=== PATIENT | female | born 1955 | race Caucasian/White ===

== ENCOUNTER 2016-04-08 14:21 | Outpatient (RCR) | payer MEDICARE ==
[~2016-04-08 14:21] MED LIST: ALBU8.5H2 IH; ANAS1TAB44 PO; ASPI-875 PO; CHOL200018 PO; CLN150C PO; CPR500T PO; DCS100C PO; DICL50TA4 PO; DICL75TA2 PO; GABA-488 PO; HYDR-34 PO; HYDR1TAB66 PO; IBP600T1 PO; IBP800T PO; LOSA100T7 PO; LOSA25TA5 PO; MELO-198 PO; METF-380 PO; METF500T8 PO; METR500T PO; MULT-974 PO; Nystatin TP; OXYC-12 PO; ROSU10TA12 PO; ROSU40TA PO; SRTR100T PO; TELM1TAB3 PO; TELM40T PO; VITA400T9 PO
--- OUTSIDE RECORDS SUMMARY | 2016-04-08 14:25 | XMS REPORT | Continuity of Care Document ---
Author Author [facility] Organization [facility] Address Unknown Phone Unavailable Care Team Providers Care Surface Ship Usw Supervisor Name Role Phone NO, LOCAL PHYSICIAN PCP Unavailable Insurance Providers Payer Name Policy Number Subscriber Name Relationship Wps Medicare [id number] PinkyoumouGeorget Nasreen 18 Self / Same As Patient Medicaid [place] [id number] Heidi Soria 18 Self / Same As Patient Advance Directives Directive Response Recorded Date/Time Advance Directives No 11/15/14 10:47pm Health Care Power of Denture Contour Wire Specialist No 11/15/14 10:47pm Organ Donor N would like to be 11/15/14 10:47pm Resuscitation Status DNR-Pt Request 11/15/14 10:47pm Chief Complaint and Reason for Visit Chief Complaint L BREAST CELLULITIS, HX L BREAST CA,DM Reason for Visit Diabetes mellitus History of left breast cancer Diabetes mellitus Problems Medical Problems Problem Onset Date Status Wound dehiscence Unknown Active Dehiscence of surgical wound Unknown Active Diabetes mellitus Unknown Active History of left breast cancer Unknown Active Diabetes mellitus Unknown Active Medications Medication Dose Route Sig Days/Qty Instructions Order Date Discontinued Date Status Sertraline HCl 100 Mg PO TWICE A DAY 05/29/11 Active Telmisartan/Hydrochlorothiazide 1 Each PO DAILY 05/29/11 05/26/12 Discontinued Metformin HCl (Glucophage) 1 Each PO TWICE A DAY WITH MEALS 05/29/11 11/16/14 Discontinued Meloxicam (Mobic) 1 Each PO DAILY 05/29/11 05/26/12 Discontinued Ciprofloxacin 500 Mg PO TWICE A DAY 10/07/11 05/26/12 Discontinued Metronidazole (Flagyl) 500 Mg PO TWICE A DAY 10/07/11 05/26/12 Discontinued Hydrocodone Bit/Acetaminophen 5 - 500 Mg PO NEEDED 10/07/1105/26 Discontinued Ibuprofen 800 Mg PO TWICE A DAY 10/07/11 05/20/13 Discontinued Oxycodone Hcl/Acetaminophen 1 Each PO 10/09/11 05/26/12 Discontinued Telmisartan 80 Mg PO DAILY 05/26/12 05/19/13 Discontinued Oxycodone Hcl/Acetaminophen 1-2 Each PO NEEDED 06/02/12 05/20/13 Discontinued Anastrozole 1 Mg PO DAILY 05/04/13 Active Losartan Potassium 25 Mg PO DAILY 30 Qty 05/19/13 11/16/14 Discontinued Docusate Sodium 100 Mg PO TWICE A DAY PRN CONSTIPATION 30 Qty 05/20/13 05/27/13 Discontinued Acetaminophen/Hydrocodone Bitart 1 Ea PO EVERY 6 HOURS PRN PAIN 50 Qty 05/20/13 05/27/13 Discontinued Ibuprofen 600 Mg PO EVERY 6 HOURS PRN PAIN 60 Qty 05/20/13 05/27/13 Discontinued Diclofenac Potassium 50 Mg PO 11/15/14 11/16/14 Discontinued Gabapentin 300 Mg PO THREE TIMES A DAY 11/15/14 Active Rosuvastatin Calcium 40 Mg PO 11/15/14 11/16/14 Discontinued Metformin Hcl 1,000 Mg PO BEDTIME TAKES 2 (500MG) TABLETS 11/16/14 Active Losartan Potassium 100 Mg PO BEDTIME 11/16/14 Active Diclofenac Sodium 75 Mg PO TWICE A DAY PRN PAIN 11/16/14 Active Rosuvastatin Calcium 10 Mg PO BEDTIME 11/16/14 Active Albuterol 1 Puff IH EVERY 4-6 HOURS PRN SHORTNESS OF BREATH 11/16/14 Active Vitamin E Mixed 400 Unit PO TWICE A DAY 11/16/14 Active Multivitamin 1 Tab PO DAILY 11/16/14 Active Cholecalciferol (Vitamin D3) 2,000 Unit PO DAILY 11/16/14 Active Aspirin 81 Mg PO BEDTIME 30 Days 11/16/14 Active Clindamycin Hcl 300 Mg PO GIVE EVERY 6 HR ON SCHEDULE 28 Qty 11/17/14 Active [Nystatin] 0 Gm TP THREE TIMES A DAY 1 Qty 11/17/14 Active Social History Social History Problem Response Recorded Date/Time Alcohol Use Denies Use 11/15/2014 10:53pm Recreational Drug Use No 11/15/2014 10:53pm Recent Foreign Travel No 11/15/2014 10:53pm Recent Infectious Disease Exposure No 11/15/2014 10:53pm Hospitalization with Isolation Denies 11/17/2014 10:36am Sexually Transmitted Disease No 11/15/2014 10:53pm HIV/AIDS No 11/15/2014 10:53pm Smoking Status Never a Smoker 11/15/2014 10:49pm Query Response Start Date Stop Date Smoking Status Never a Smoker Hospital Discharge Instructions Patient Instructions Physician Instructions New, Converted or Re-Newed RX: Transmitted to Pharmacy (Clindamycin; RN to call in Nystatin) Goal/Follow Up Appt: Follow up with Barbara Hermosillo at [facility] 1 week. Discharge Diet: ADA Diet Activity as Tolerated: Yes Care Plan Goal:: Follow up with Barbara Hermosillo at [facility] 1 week. Plan of Care Discharge Date 11/17/14 9:40am Disposition 30 STILL A PATIENT Instructions/Education Provided Cellulitis (DC) Prescriptions See Medications Section Functional Status Query Response Date Recorded Comprehension Ability Understands Concepts November 17, 2014 8:00am Allergies, Adverse Reactions, Alerts Allergen Type Severity Reaction Status Last Updated No Known Drug Allergies Active 05/29/11 Immunizations Name Given Type Date of Pneumonia Vaccine 05/02/12 Historical Date of Influenza Vaccine 03/02/13 Historical Tetanus Booster (TDap) Less than 5yrs Historical Vital Signs Acute Vital Signs Vital Response Date/Time Temperature (Fahrenheit) 96.8 degrees F (97.6 - 99.5) Temperature (Calculated Celsius) 36.11457 degrees C (36.4 - 37.5) Temperature Source Tympanic Pulse Rate (adult) 75 bpm (60 - 90) Respiratory Rate 18 bpm (12 - 24) O2 Sat by Pulse Oximetry 95 % (88 - 100) Blood Pressure 127/80 mm Hg Pain Pain Intensity 0 Height (Feet) 5 feet Height (Inches) 2.00 inches Height (Calculated Centimeters) 157.611303 cm Weight (Pounds) 336 pounds Weight (Calculated Grams) 658286.038 gm Weight (Calculated Kilograms) 152.360227 kilograms Calculated BMI 61.45 Results Laboratory Results Test Name Result Units Flags Reference Collection Date/Time Result Date/ Time Comments White Blood Count 9.1 10^3/uL 4.3-11.0 11/17/2014 5:11/17/2014 6: 20am Red Blood Count 4.51 10^6/uL 4.35-5.85 11/17/2014 5:11/17/2014 6: 20am Hemoglobin 11.7 G/DL 11.5-16.0 11/17/2014 5:11/17/2014 6:20am Hematocrit 37 % 35-52 11/17/2014 5:11/17/2014 6:20am Mean Corpuscular Volume 82 FL 80-99 11/17/2014 5:11/17/2014 6: 20am Mean Corpuscular Hemoglobin 26 PG 25-34 11/17/2014 5:11/17/2014 6: 20am Mean Corpuscular Hemoglobin Concent 32 G/DL 32-36 11/17/2014 5: 6:20am Red Cell Distribution Width 16.8 % H 10.0-14.5 11/17/2014 5:2014 6:20am Platelet Count 218 10^3/uL 130-400 11/17/2014 5:11/17/2014 6:20am Mean Platelet Volume 10.4 FL 7.4-10.4 11/17/2014 5:11/17/2014 6: 20am Neutrophils (%) (Auto) 68 % 42-75 11/17/2014 5:11/17/2014 6:20am Lymphocytes (%) (Auto) 17 % 12-44 11/17/2014 5:11/17/2014 6:20am Monocytes (%) (Auto) 14 % H 0-12 11/17/2014 5:11/17/2014 6:20am Eosinophils (%) (Auto) 2 % 0-10 11/17/2014 5:11/17/2014 6:20am Basophils (%) (Auto) 0 % 0-10 11/17/2014 5:11/17/2014 6:20am Neutrophils # (Auto) 6.1 X 10^3 1.8-7.8 11/17/2014 5:11/17/2014 6: 20am Lymphocytes # (Auto) 1.5 X 10^3 1.0-4.0 11/17/2014 5:11/17/2014 6: 20am Monocytes # (Auto) 1.3 X 10^3 H 0.0-1.0 11/17/2014 5:11/17/2014 6: 20am Eosinophils # (Auto) 0.1 10^3/uL 0.0-0.3 11/17/2014 5:11/17/2014 6 :20am Basophils # (Auto) 0.0 10^3/uL 0.0-0.1 11/17/2014 5:11/17/2014 6: 20am Neutrophils % (Manual) 72 % 11/17/2014 5:11/17/2014 7:13am Band Neutrophils 1 % 11/17/2014 5:11/17/2014 7:13am Lymphocytes % (Manual) 18 % 11/17/2014 5:11/17/2014 7:13am Monocytes % (Manual) 8 % 11/17/2014 5:11/17/2014 7:13am Eosinophils % (Manual) 1 % 11/17/2014 5:11/17/2014 7:13am Basophils % (Manual) 0 % 11/17/2014 5:11/17/2014 7:13am Reactive Lymphocytes 2 % 11/15/2014 8:43pm 11/15/2014 9:22pm Anisocytosis MODERATE 11/17/2014 5:11/17/2014 7:13am Microcytosis MODERATE 11/17/2014 5:11/17/2014 7:13am Elliptocytes SLIGHT 11/17/2014 5:11/17/2014 7:13am Erythrocyte Sedimentation Rate 34 MM/HR H 0-30 11/15/2014 8:43pm 2014 9:37pm Sodium Level 143 MMOL/L 135-145 11/17/2014 5:11/17/2014 6:46am Potassium Level 4.3 MMOL/L 3.6-5.0 11/17/2014 5:11/17/2014 6:46am Chloride Level 108 MMOL/L H 98-107 11/17/2014 5:11/17/2014 6:46am Carbon Dioxide Level 24 MMOL/L 21-32 11/17/2014 5:11/17/2014 6: 46am Blood Urea Nitrogen 15 MG/DL 7-18 11/17/2014 5:11/17/2014 6:46am Creatinine 0.64 MG/DL 0.60-1.30 11/17/2014 5:11/17/2014 6:46am BUN/Creatinine Ratio 23 11/17/2014 5:11/17/2014 6:46am Estimat Glomerular Filtration Rate > 60 11/17/2014 5:2014 6:46am GFR INTERPRETIVE DATA UNITS FOR ESTIMATED GFR (eGFR): mL/min/1.73 M2 REFERENCE RANGE FOR ESTIMATED GFR (eGFR) eGFR NORMAL eGFR >60 MODERATELY DECREASED eGFR 30-59 SEVERLY DECREASED eGFR 15-29 KIDNEY FAILURE <15 (OR DIALYSIS) Glucose Level 104 MG/DL 70-105 11/17/2014 5:11/17/2014 6:46am Glucometer 97 MG/DL 70-110 11/17/2014 5:11/17/2014 5:47am Calcium Level 9.3 MG/DL 8.5-10.1 11/17/2014 5:11/17/2014 6:46am Total Bilirubin 0.3 MG/DL 0.1-1.0 11/16/2014 5:11/16/2014 6:21am Alkaline Phosphatase 65 U/L 40-136 11/16/2014 5:11/16/2014 6:21am Aspartate Amino Transf (AST/SGOT) 20 U/L 5-34 11/16/2014 5:2014 6:21am Alanine Aminotransferase (ALT/SGPT) 22 U/L 0-55 11/16/2014 5:11/16 6:21am Total Protein 6.4 G/DL 6.4-8.2 11/16/2014 5:11/16/2014 6:21am Albumin 3.4 G/DL 3.2-4.5 11/16/2014 5:11/16/2014 6:21am Lactic Acid Level 1.9 MMOL/L 0.5-2.2 11/15/2014 8:43pm 11/15/2014 9: 12pm C-Reactive Protein High Sensitivity 12.64 MG/DL H 0.00-0.50 11/15/2014 8: 43pm 11/15/2014 9:14pm Procedures No known history of procedures. Encounters Encounter Location Date/Time Discharged Inpatient Via [facility] 11/15/14 9:42pm Recent Diagnosis Diabetes mellitus History of left breast cancer Diabetes mellitus
[2016-04-08 14:28] LABS: BASOPHILS % (AUTO) 0 % (0-10); EOSINOPHILS # (AUTO) 0.2 10^3/uL (0.0-0.3); EOSINOPHILS % (AUTO) 2 % (0-10); LYMPHOCYTES % (AUTO) 21 % (12-44); MEAN CORPUSCULAR HEMOGLOBIN 26 PG (25-34); MEAN CORPUSCULAR HGB CONC 33 G/DL (32-36); MEAN CORPUSCULAR VOLUME 78 FL (80-99); MEAN PLATELET VOLUME 11.3 FL (7.4-10.4); MONOCYTES # (AUTO) 1.2 X 10^3 (0.0-1.0); MONOCYTES % (AUTO) 12 % (0-12); NEUTROPHILS # (AUTO) 6.2 X 10^3 (1.8-7.8); NEUTROPHILS % (AUTO) 64 % (42-75); PLATELET COUNT 232 10^3/uL (130-400); RED CELL DISTRIBUTION WIDTH 18.7 % (10.0-14.5); WHITE BLOOD COUNT 9.6 10^3/uL (4.3-11.0)
[2016-04-08 15:10] LABS: ALANINE AMINOTRANSFERASE 21 U/L (0-55); ALBUMIN 4.4 G/DL (3.2-4.5); ANION GAP 10 MMOL/L (5-14); ASPARTATE AMINO TRANSFERASE 18 U/L (5-34); BILIRUBIN,TOTAL 0.5 MG/DL (0.1-1.0); BLOOD UREA NITROGEN 23 MG/DL (7-18); BUN/CREATININE RATIO 29; CALCIUM 9.8 MG/DL (8.5-10.1); CARBON DIOXIDE 25 MMOL/L (21-32); CHLORIDE 104 MMOL/L (98-107); GFR ESTIMATED > 60; GLUCOSE 84 MG/DL (70-105); POTASSIUM 4.2 MMOL/L (3.6-5.0); SODIUM 139 MMOL/L (135-145); TOTAL PROTEIN 7.9 G/DL (6.4-8.2)
== END 2016-07-07 | disposition home or self-care (01) ==
LOC: ONC 14:21
PROVIDERS: ATTEND Internal Medicine Hematology & Oncology
DX: C50.912 Malignant neoplasm of unspecified site of left female breast (principal); L98.9 Disorder of the skin and subcutaneous tissue, unspecified; E66.01 Morbid (severe) obesity due to excess calories; Z68.43 Body mass index [BMI] 50.0-59.9, adult; E11.9 Type 2 diabetes mellitus without complications; F32.9 Major depressive disorder, single episode, unspecified; Z90.710 Acquired absence of both cervix and uterus; Z17.0 Estrogen receptor positive status [ER+]; Z92.3 Personal history of irradiation; Z79.899 Other long term (current) drug therapy
CPT/HCPCS: 36415; 80053; 85025; 86300; 99213

== ENCOUNTER → 2016-07-28 | Outpatient (CLI) | payer MEDICARE ==
--- OUTSIDE RECORDS SUMMARY | 2016-07-28 08:04 | XMS REPORT | Continuity of Care Document ---
Author Author [facility] Organization [facility] Address Unknown Phone Unavailable Care Team Providers Care Glove Cutter Name Role Phone NO, LOCAL PHYSICIAN PCP Unavailable Insurance Providers Payer Name Policy Number Subscriber Name Relationship Wps Medicare [id number] PinkyoumouGeorget Nasreen 18 Self / Same As Patient Medicaid [place] [id number] Heidi Soria 18 Self / Same As Patient Advance Directives Directive Response Recorded Date/Time Advance Directives No 11/15/14 10:47pm Health Care Power of License Issuer No 11/15/14 10:47pm Organ Donor N would [...] F (97.6 - 99.5) Temperature (Calculated Celsius) 36.25207 degrees C (36.4 - 37.5) Temperature Source Tympanic Pulse Rate (adult) 75 bpm (60 - 90) Respiratory Rate 18 bpm (12 - 24) O2 Sat by Pulse Oximetry 95 % (88 - 100) Blood Pressure 127/80 mm Hg Pain Pain Intensity 0 Height (Feet) 5 feet Height (Inches) 2.00 inches Height (Calculated Centimeters) 157.672972 cm Weight (Pounds) 336 pounds Weight (Calculated Grams) 299976.038 gm Weight (Calculated Kilograms) 152.712669 kilograms Calculated BMI 61.45 Results Laboratory Results [...] Encounters Encounter Location Date/Time Discharged Inpatient Via [facility] 11/15/14 9:42pm Recent Diagnosis Diabetes mellitus History of left breast cancer Diabetes mellitus
== END ==
LOC: CARD 08:00
PROVIDERS: ATTEND Nurse Practitioner Family
DX: R00.2 Palpitations (principal)
CPT/HCPCS: 93225; 93226

== ENCOUNTER → 2016-07-29 | Outpatient (CLI) | payer MEDICARE ==
--- OUTSIDE RECORDS SUMMARY | 2016-07-29 08:25 | XMS REPORT | Continuity of Care Document ---
Author Author [facility] Organization [facility] Address Unknown Phone Unavailable Care Team Providers Care Detective Investigator Name Role Phone NO, LOCAL PHYSICIAN PCP Unavailable Insurance Providers Payer Name Policy Number Subscriber Name Relationship Wps Medicare [id number] PinkyoumouGeorget Nasreen 18 Self / Same As Patient Medicaid [place] [id number] Heidi Soria 18 Self / Same As Patient Advance Directives Directive Response Recorded Date/Time Advance Directives No 11/15/14 10:47pm Health Care Power of Buggy Operator No 11/15/14 10:47pm Organ Donor N would [...] Appt: Follow up with Barbara Hermosillo at [facility] 1 week. Discharge Diet: ADA Diet Activity as Tolerated: Yes Care Plan Goal:: Follow up with Barbara Hermosillo at [facility] 1 week. Plan of Care Discharge Date [...] F (97.6 - 99.5) Temperature (Calculated Celsius) 36.64761 degrees C (36.4 - 37.5) Temperature Source Tympanic Pulse Rate (adult) 75 bpm (60 - 90) Respiratory Rate 18 bpm (12 - 24) O2 Sat by Pulse Oximetry 95 % (88 - 100) Blood Pressure 127/80 mm Hg Pain Pain Intensity 0 Height (Feet) 5 feet Height (Inches) 2.00 inches Height (Calculated Centimeters) 157.716260 cm Weight (Pounds) 336 pounds Weight (Calculated Grams) 863102.038 gm Weight (Calculated Kilograms) 152.198549 kilograms Calculated BMI 61.45 Results Laboratory Results [...] Encounters Encounter Location Date/Time Discharged Inpatient Via [facility] 11/15/14 9:42pm Recent Diagnosis Diabetes mellitus History of left breast cancer Diabetes mellitus
--- NOTE | 2016-07-29 09:32 | Diagnostic Imaging Report ---
Bilateral diagnostic mammogram. CAD is utilized. COMPARISON: 07/22/2015. FINDINGS: There are scattered fibroglandular densities. There are increased calcifications in the central aspect of the left breast that appear to be related to the lumpectomy site. The right breast demonstrates no developing mass or suspicious calcifications. IMPRESSION: Increased calcifications at the lumpectomy site are most likely dystrophic type. Ultrasound evaluation is pending to ensure lack of the soft tissue mass. ACR BI-RADS Category 0: Incomplete. (Needs additional imaging evaluation). Result letter will be mailed to the patient. Note: At least 10% of breast cancer is not imaged by mammography. Dictated by: Dictated on workstation # [id number]
--- NOTE | 2016-07-29 22:51 | Diagnostic Imaging Report ---
Left breast ultrasound. INDICATION: Left breast increased opacification at lumpectomy site. FINDINGS: The calcifications are noted at the lumpectomy site with shadowing with no soft tissue mass associated with it noted. IMPRESSION: Shadowing calcifications corresponding to mammographic finding seen with scattered soft tissue mass at the lumpectomy site. These calcifications have dystrophic benign-appearing character on mammography. Six-month followup left breast mammogram to ensure stability is recommended. ACR BI-RADS Category 3: Probably benign findings. Dictated by: Dictated on workstation # [id number]
== END ==
LOC: RAD 08:22
PROVIDERS: ATTEND Internal Medicine Hematology & Oncology
DX: R92.8 Other abnormal and inconclusive findings on diagnostic imaging of breast (principal); C50.412 Malignant neoplasm of upper-outer quadrant of left female breast
CPT/HCPCS: 76642; 77066

== ENCOUNTER 2016-09-02 14:54 | Outpatient (RCR) | payer MEDICARE ==
[2016-09-02 15:09] LABS: BASOPHILS % (AUTO) 0 % (0-10); EOSINOPHILS # (AUTO) 0.2 10^3/uL (0.0-0.3); EOSINOPHILS % (AUTO) 2 % (0-10); LYMPHOCYTES # (AUTO) 2.1 X 10^3 (1.0-4.0); LYMPHOCYTES % (AUTO) 31 % (12-44); MEAN CORPUSCULAR HEMOGLOBIN 27 PG (25-34); MEAN CORPUSCULAR HGB CONC 32 G/DL (32-36); MEAN CORPUSCULAR VOLUME 83 FL (80-99); MEAN PLATELET VOLUME 10.6 FL (7.4-10.4); MONOCYTES # (AUTO) 0.9 X 10^3 (0.0-1.0); MONOCYTES % (AUTO) 13 % (0-12); NEUTROPHILS # (AUTO) 3.7 X 10^3 (1.8-7.8); NEUTROPHILS % (AUTO) 54 % (42-75); PLATELET COUNT 211 10^3/uL (130-400); RED BLOOD COUNT 4.85 10^6/uL (4.35-5.85); RED CELL DISTRIBUTION WIDTH 17.4 % (10.0-14.5)
[2016-09-02 15:32] LABS: ALANINE AMINOTRANSFERASE 14 U/L (0-55); ALBUMIN 4.2 G/DL (3.2-4.5); ANION GAP 11 MMOL/L (5-14); ASPARTATE AMINO TRANSFERASE 20 U/L (5-34); BILIRUBIN,TOTAL 0.3 MG/DL (0.1-1.0); BLOOD UREA NITROGEN 23 MG/DL (7-18); BUN/CREATININE RATIO 29; CALCIUM 9.5 MG/DL (8.5-10.1); CARBON DIOXIDE 24 MMOL/L (21-32); CHLORIDE 105 MMOL/L (98-107); GFR ESTIMATED > 60; GLUCOSE 76 MG/DL (70-105); POTASSIUM 4.1 MMOL/L (3.6-5.0); SODIUM 140 MMOL/L (135-145); TOTAL PROTEIN 7.3 G/DL (6.4-8.2)
== END 2016-12-01 | disposition home or self-care (01) ==
LOC: ONC 14:54
PROVIDERS: ATTEND Internal Medicine Hematology & Oncology
DX: C50.412 Malignant neoplasm of upper-outer quadrant of left female breast (principal); L98.9 Disorder of the skin and subcutaneous tissue, unspecified; E66.01 Morbid (severe) obesity due to excess calories; Z68.43 Body mass index [BMI] 50.0-59.9, adult; E11.9 Type 2 diabetes mellitus without complications; F32.9 Major depressive disorder, single episode, unspecified; Z90.710 Acquired absence of both cervix and uterus; Z17.0 Estrogen receptor positive status [ER+]; Z92.3 Personal history of irradiation; Z79.899 Other long term (current) drug therapy
CPT/HCPCS: 36415; 80053; 85025; 86300; 99213

== ENCOUNTER → 2017-02-23 | Outpatient (CLI) | payer MEDICARE ==
--- NOTE | 2017-02-23 10:01 | Diagnostic Imaging Report ---
EXAMINATION: Left breast diagnostic mammogram with a Computer Aided Detection (CAD) system. INDICATION: Followup calcifications in the central aspect of the left breast posteriorly. FINDINGS: Calcifications in the posterior central slightly lateral left breast are again seen and appear to be coarse and with confluent components, suggestive of dystrophic type calcifications. No associated mass. A slight increase in the calcifications is seen from the prior exam. No suspicious change. IMPRESSION: Slight further increase in the posterior central left breast calcifications in a pattern favored to be benign, likely dystrophic calcifications. Another followup when the patient is due for her bilateral mammogram in July 2017 is recommended. ACR BI-RADS Category 3: Probably benign findings. Result letter will be mailed to the patient. Note: At least 10% of breast cancer is not imaged by mammography. Dictated by: Dictated on workstation # [id number]
== END ==
LOC: RAD 08:21
PROVIDERS: ATTEND Internal Medicine Hematology & Oncology
DX: R92.1 Mammographic calcification found on diagnostic imaging of breast (principal)

== ENCOUNTER 2017-03-16 13:56 | Outpatient (RCR) | payer MEDICARE ==
[2017-03-16 14:28] LABS: BASOPHILS % (AUTO) 0 % (0-10); EOSINOPHILS # (AUTO) 0.2 10^3/uL (0.0-0.3); EOSINOPHILS % (AUTO) 2 % (0-10); HEMATOCRIT 42 % (35-52); HEMOGLOBIN 13.8 G/DL (11.5-16.0); LYMPHOCYTES # (AUTO) 2.1 X 10^3 (1.0-4.0); LYMPHOCYTES % (AUTO) 26 % (12-44); MEAN CORPUSCULAR HEMOGLOBIN 27 PG (25-34); MEAN CORPUSCULAR HGB CONC 33 G/DL (32-36); MEAN CORPUSCULAR VOLUME 84 FL (80-99); MEAN PLATELET VOLUME 10.1 FL (7.4-10.4); MONOCYTES % (AUTO) 12 % (0-12); NEUTROPHILS # (AUTO) 4.9 X 10^3 (1.8-7.8); NEUTROPHILS % (AUTO) 60 % (42-75); PLATELET COUNT 226 10^3/uL (130-400); RED BLOOD COUNT 5.03 10^6/uL (4.35-5.85); RED CELL DISTRIBUTION WIDTH 14.2 % (10.0-14.5); WHITE BLOOD COUNT 8.2 10^3/uL (4.3-11.0)
[2017-03-16 14:51] LABS: ALANINE AMINOTRANSFERASE 17 U/L (0-55); ALBUMIN 4.2 GM/DL (3.2-4.5); ALKALINE PHOSPHATASE 59 U/L (40-136); BILIRUBIN,TOTAL 0.4 MG/DL (0.1-1.0); BUN/CREATININE RATIO 21; CARBON DIOXIDE 27 MMOL/L (21-32); CHLORIDE 101 MMOL/L (98-107); CREATININE SERUM 0.77 MG/DL (0.60-1.30); GFR ESTIMATED > 60; GLUCOSE 81 MG/DL (70-105); POTASSIUM 4.3 MMOL/L (3.6-5.0); SODIUM 138 MMOL/L (135-145); TOTAL PROTEIN 7.8 GM/DL (6.4-8.2)
== END 2017-06-14 | disposition home or self-care (01) ==
LOC: ONC 13:56
PROVIDERS: ATTEND Internal Medicine Hematology & Oncology
DX: C50.412 Malignant neoplasm of upper-outer quadrant of left female breast (principal); L98.9 Disorder of the skin and subcutaneous tissue, unspecified; E66.01 Morbid (severe) obesity due to excess calories; Z68.43 Body mass index [BMI] 50.0-59.9, adult; E11.9 Type 2 diabetes mellitus without complications; F32.9 Major depressive disorder, single episode, unspecified; Z90.710 Acquired absence of both cervix and uterus; Z17.0 Estrogen receptor positive status [ER+]; Z92.3 Personal history of irradiation; Z79.899 Other long term (current) drug therapy
CPT/HCPCS: 36415; 80053; 85025; 99213

== ENCOUNTER → 2017-08-13 | Outpatient (CLI) | payer MEDICARE ==
--- NOTE | 2017-08-13 18:19 | Diagnostic Imaging Report ---
Digital mammogram bilateral diagnostic. INDICATION: Carcinoma of the left breast. This study was compared to the prior exams of 02/23/2017, 07/29/2016, 07/22/2015, and 02/15/2015. At this time, there are no current complaints. The current study was also evaluated with a Computer Aided Detection (CAD) system. FINDINGS: The previous exam did note dystrophic calcifications in the lumpectomy site on the left. Those calcifications are again evident and do not seem to have changed significantly. I do feel that they are benign. Even so, it may prove worthwhile to have a short-term (6-month) follow-up mammogram for continued evaluation. There are scattered fibroglandular densities in both breasts which could obscure a lesion. When compared to the previous studies, there has been no significant change. There is no primary or secondary sign of malignancy noted. IMPRESSION: 1. The postsurgical changes involving the left breast seen previously appear stable. There is no sign of recurrent malignancy. Recommendations as above. 2. There is no other evidence for malignancy involving either breast. ACR BI-RADS Category 3: Probably benign findings. Result letter will be mailed to the patient. Note: At least 10% of breast cancer is not imaged by mammography. Dictated by: Dictated on workstation # [id number]
== END ==
LOC: RAD 09:05
PROVIDERS: ATTEND Internal Medicine Hematology & Oncology
DX: R92.8 Other abnormal and inconclusive findings on diagnostic imaging of breast (principal); Z85.3 Personal history of malignant neoplasm of breast; Z90.12 Acquired absence of left breast and nipple
CPT/HCPCS: 77066

== ENCOUNTER 2017-09-14 14:33 | Outpatient (RCR) | payer MEDICARE ==
[2017-09-14 14:52] LABS: BASOPHILS % (AUTO) 0 % (0-10); EOSINOPHILS # (AUTO) 0.2 10^3/uL (0.0-0.3); EOSINOPHILS % (AUTO) 3 % (0-10); HEMATOCRIT 41 % (35-52); HEMOGLOBIN 13.6 G/DL (11.5-16.0); LYMPHOCYTES # (AUTO) 1.9 X 10^3 (1.0-4.0); LYMPHOCYTES % (AUTO) 20 % (12-44); MEAN CORPUSCULAR HEMOGLOBIN 28 PG (25-34); MEAN CORPUSCULAR HGB CONC 33 G/DL (32-36); MEAN CORPUSCULAR VOLUME 84 FL (80-99); MEAN PLATELET VOLUME 10.1 FL (7.4-10.4); MONOCYTES % (AUTO) 11 % (0-12); NEUTROPHILS # (AUTO) 6.1 X 10^3 (1.8-7.8); NEUTROPHILS % (AUTO) 66 % (42-75); PLATELET COUNT 222 10^3/uL (130-400); RED BLOOD COUNT 4.86 10^6/uL (4.35-5.85); RED CELL DISTRIBUTION WIDTH 14.6 % (10.0-14.5); WHITE BLOOD COUNT 9.3 10^3/uL (4.3-11.0)
[2017-09-14 15:15] LABS: ALANINE AMINOTRANSFERASE 15 U/L (0-55); ALBUMIN 4.3 GM/DL (3.2-4.5); ALKALINE PHOSPHATASE 68 U/L (40-136); BILIRUBIN,TOTAL 0.4 MG/DL (0.1-1.0); BUN/CREATININE RATIO 40; CALCIUM 9.6 MG/DL (8.5-10.1); CARBON DIOXIDE 26 MMOL/L (21-32); CHLORIDE 106 MMOL/L (98-107); CREATININE SERUM 0.78 MG/DL (0.60-1.30); GFR ESTIMATED > 60; GLUCOSE 98 MG/DL (70-105); POTASSIUM 4.5 MMOL/L (3.6-5.0); SODIUM 141 MMOL/L (135-145); TOTAL PROTEIN 7.4 GM/DL (6.4-8.2)
== END 2017-12-13 | disposition home or self-care (01) ==
LOC: ONC 14:33
PROVIDERS: ATTEND Internal Medicine Hematology & Oncology
DX: C50.412 Malignant neoplasm of upper-outer quadrant of left female breast (principal); L98.9 Disorder of the skin and subcutaneous tissue, unspecified; E66.01 Morbid (severe) obesity due to excess calories; Z68.42 Body mass index [BMI] 45.0-49.9, adult; E11.9 Type 2 diabetes mellitus without complications; F32.9 Major depressive disorder, single episode, unspecified; Z90.710 Acquired absence of both cervix and uterus; Z17.0 Estrogen receptor positive status [ER+]; Z92.3 Personal history of irradiation; Z79.899 Other long term (current) drug therapy
CPT/HCPCS: 36415; 80053; 85025; 99213

== ENCOUNTER → 2018-02-16 | Outpatient (CLI) | payer MEDICARE ==
--- NOTE | 2018-02-16 18:17 | Diagnostic Imaging Report ---
INDICATION: Six-month followup. Patient is status post left lumpectomy. COMPARISON: Correlation is made with prior mammogram from 08/13/2017. EXAMINATION: Unilateral left 2D and 3D diagnostic mammography was performed. FINDINGS: Dystrophic calcifications in the central left breast appear stable. No new mass or malignant-appearing micro-calculations are seen. Left axilla is unremarkable. IMPRESSION: BI-RADS 3. Stable left mammogram. Patient should return in six months for additional followup to confirm stability. Dictated by: Dictated on workstation # [id number]
== END ==
LOC: RAD 14:03
PROVIDERS: ATTEND Internal Medicine Hematology & Oncology
DX: R92.1 Mammographic calcification found on diagnostic imaging of breast (principal); Z98.890 Other specified postprocedural states

== ENCOUNTER 2018-02-22 13:32 | Outpatient (RCR) | payer MEDICARE ==
[2018-02-22 13:51] LABS: BASOPHILS % (AUTO) 0 % (0-10); EOSINOPHILS # (AUTO) 0.2 10^3/uL (0.0-0.3); EOSINOPHILS % (AUTO) 3 % (0-10); HEMATOCRIT 40 % (35-52); HEMOGLOBIN 13.2 G/DL (11.5-16.0); LYMPHOCYTES # (AUTO) 2.2 X 10^3 (1.0-4.0); LYMPHOCYTES % (AUTO) 32 % (12-44); MEAN CORPUSCULAR HEMOGLOBIN 28 PG (25-34); MEAN CORPUSCULAR HGB CONC 33 G/DL (32-36); MEAN CORPUSCULAR VOLUME 85 FL (80-99); MEAN PLATELET VOLUME 10.1 FL (7.4-10.4); MONOCYTES # (AUTO) 0.9 X 10^3 (0.0-1.0); MONOCYTES % (AUTO) 13 % (0-12); NEUTROPHILS # (AUTO) 3.6 X 10^3 (1.8-7.8); NEUTROPHILS % (AUTO) 52 % (42-75); PLATELET COUNT 187 10^3/uL (130-400); RED BLOOD COUNT 4.74 10^6/uL (4.35-5.85); RED CELL DISTRIBUTION WIDTH 15.1 % (10.0-14.5); WHITE BLOOD COUNT 6.9 10^3/uL (4.3-11.0)
[2018-02-22 14:16] LABS: ALANINE AMINOTRANSFERASE 15 U/L (0-55); ALBUMIN 4.2 GM/DL (3.2-4.5); ALKALINE PHOSPHATASE 85 U/L (40-136); BILIRUBIN,TOTAL 0.2 MG/DL (0.1-1.0); BUN/CREATININE RATIO 32; CALCIUM 9.5 MG/DL (8.5-10.1); CARBON DIOXIDE 27 MMOL/L (21-32); CHLORIDE 108 MMOL/L (98-107); CREATININE SERUM 0.76 MG/DL (0.60-1.30); GFR ESTIMATED > 60; GLUCOSE 93 MG/DL (70-105); POTASSIUM 4.6 MMOL/L (3.6-5.0); SODIUM 140 MMOL/L (135-145); TOTAL PROTEIN 7.2 GM/DL (6.4-8.2)
== END 2018-02-27 | disposition home or self-care (01) ==
LOC: ONC 13:32
PROVIDERS: ATTEND Internal Medicine Hematology & Oncology
DX: C50.412 Malignant neoplasm of upper-outer quadrant of left female breast (principal); L98.9 Disorder of the skin and subcutaneous tissue, unspecified; E66.01 Morbid (severe) obesity due to excess calories; Z68.42 Body mass index [BMI] 45.0-49.9, adult; E11.9 Type 2 diabetes mellitus without complications; F32.9 Major depressive disorder, single episode, unspecified; Z90.710 Acquired absence of both cervix and uterus; Z17.0 Estrogen receptor positive status [ER+]; Z92.3 Personal history of irradiation; Z79.899 Other long term (current) drug therapy
CPT/HCPCS: 36415; 80053; 85025; 99213

== ENCOUNTER → 2018-08-15 | Outpatient (CLI) | payer MEDICARE ==
--- NOTE | 2018-08-15 20:38 | Diagnostic Imaging Report ---
INDICATION: Left breast carcinoma. Correlation is made with prior mammograms dating back to 2014. 2-D and 3-D bilateral diagnostic mammography was performed with Computer-Aided Detection (CAD) system. FINDINGS: Scattered fibroglandular densities are identified bilaterally. Dystrophic calcifications in the central left breast are again noted. No new mass or malignant-appearing microcalcifications are seen. The axillae are unremarkable. IMPRESSION: Stable bilateral mammograms. There are no mammographic features suspicious for malignancy. ACR BI-RADS Category 2: Benign findings. Result letter will be mailed to the patient. Note: At least 10% of breast cancer is not imaged by mammography. Dictated by: Dictated on workstation # [id number]
== END ==
LOC: RAD 13:51
PROVIDERS: ATTEND Internal Medicine Hematology & Oncology
DX: C50.412 Malignant neoplasm of upper-outer quadrant of left female breast (principal)
CPT/HCPCS: 77066

== ENCOUNTER 2018-09-05 15:06 | Outpatient (RCR) | payer MEDICARE ==
[2018-09-05 15:18] LABS: BASOPHILS % (AUTO) 0 % (0-10); EOSINOPHILS # (AUTO) 0.1 10^3/uL (0.0-0.3); EOSINOPHILS % (AUTO) 2 % (0-10); HEMATOCRIT 41 % (35-52); HEMOGLOBIN 13.1 G/DL (11.5-16.0); LYMPHOCYTES # (AUTO) 1.8 X 10^3 (1.0-4.0); LYMPHOCYTES % (AUTO) 20 % (12-44); MEAN CORPUSCULAR HEMOGLOBIN 28 PG (25-34); MEAN CORPUSCULAR HGB CONC 32 G/DL (32-36); MEAN CORPUSCULAR VOLUME 85 FL (80-99); MEAN PLATELET VOLUME 9.8 FL (7.4-10.4); MONOCYTES # (AUTO) 1.2 X 10^3 (0.0-1.0); MONOCYTES % (AUTO) 13 % (0-12); NEUTROPHILS % (AUTO) 66 % (42-75); PLATELET COUNT 204 10^3/uL (130-400); RED CELL DISTRIBUTION WIDTH 14.9 % (10.0-14.5); WHITE BLOOD COUNT 9.1 10^3/uL (4.3-11.0)
[2018-09-05 15:42] LABS: ALANINE AMINOTRANSFERASE 24 U/L (0-55); ALBUMIN 4.2 GM/DL (3.2-4.5); ALKALINE PHOSPHATASE 70 U/L (40-136); BILIRUBIN,TOTAL 0.4 MG/DL (0.1-1.0); BUN/CREATININE RATIO 28; CALCIUM 9.9 MG/DL (8.5-10.1); CARBON DIOXIDE 28 MMOL/L (21-32); CHLORIDE 107 MMOL/L (98-107); CREATININE SERUM 0.78 MG/DL (0.60-1.30); GFR ESTIMATED > 60; GLUCOSE 97 MG/DL (70-105); POTASSIUM 4.1 MMOL/L (3.6-5.0); SODIUM 142 MMOL/L (135-145)
== END 2018-12-04 | disposition home or self-care (01) ==
LOC: ONC 15:06
PROVIDERS: ATTEND Internal Medicine Hematology & Oncology
DX: C50.412 Malignant neoplasm of upper-outer quadrant of left female breast (principal); E11.9 Type 2 diabetes mellitus without complications; F32.9 Major depressive disorder, single episode, unspecified; Z90.710 Acquired absence of both cervix and uterus; Z17.0 Estrogen receptor positive status [ER+]; Z92.3 Personal history of irradiation; Z79.899 Other long term (current) drug therapy
CPT/HCPCS: 36415; 80053; 85025; 99213

== ENCOUNTER → 2019-08-23 | Outpatient (CLI) | payer MEDICARE ==
--- NOTE | 2019-08-23 13:22 | Diagnostic Imaging Report ---
INDICATION: Left breast carcinoma. COMPARISON: 08/15/2018 and 02/16/2018. TECHNIQUE: 2D and 3D bilateral diagnostic mammography was performed with CAD. FINDINGS: Scattered fibroglandular densities are identified bilaterally. There are post lumpectomy changes in the left breast. Dystrophic calcifications in the central left breast are stable. There are benign calcifications in the right breast as well. No new mass or malignant appearing microcalcifications are seen. The axillae are unremarkable. IMPRESSION: No mammographic features suspicious for malignancy are identified. ACR BI-RADS Category 2: Benign findings. Result letter will be mailed to the patient. Note: At least 10% of breast cancer is not imaged by mammography. Dictated by: Dictated on workstation # [id number]
== END ==
LOC: RAD 12:45
PROVIDERS: ATTEND Internal Medicine Hematology & Oncology
DX: C50.412 Malignant neoplasm of upper-outer quadrant of left female breast (principal)
CPT/HCPCS: 77066

== ENCOUNTER → 2019-11-13 | Outpatient (CLI) | payer MEDICARE ==
[2019-11-13 15:14] LABS: BASOPHILS % (AUTO) 0 % (0-10); EOSINOPHILS # (AUTO) 0.2 10^3/uL (0.0-0.3); EOSINOPHILS % (AUTO) 3 % (0-10); HEMATOCRIT 44 % (35-52); HEMOGLOBIN 14.1 G/DL (11.5-16.0); LYMPHOCYTES # (AUTO) 2.5 X 10^3 (1.0-4.0); LYMPHOCYTES % (AUTO) 30 % (12-44); MEAN CORPUSCULAR HEMOGLOBIN 28 PG (25-34); MEAN CORPUSCULAR HGB CONC 32 G/DL (32-36); MEAN CORPUSCULAR VOLUME 85 FL (80-99); MEAN PLATELET VOLUME 10.2 FL (7.4-10.4); MONOCYTES # (AUTO) 1.3 X 10^3 (0.0-1.0); MONOCYTES % (AUTO) 15 % (0-12); NEUTROPHILS # (AUTO) 4.4 X 10^3 (1.8-7.8); NEUTROPHILS % (AUTO) 53 % (42-75); PLATELET COUNT 200 10^3/uL (130-400); RED CELL DISTRIBUTION WIDTH 15.5 % (10.0-14.5); WHITE BLOOD COUNT 8.4 10^3/uL (4.3-11.0)
[2019-11-13 15:36] LABS: ALANINE AMINOTRANSFERASE 18 U/L (0-55); ALBUMIN 4.5 GM/DL (3.2-4.5); ALKALINE PHOSPHATASE 66 U/L (40-136); BILIRUBIN,TOTAL 0.3 MG/DL (0.1-1.0); BUN/CREATININE RATIO 21; CALCIUM 9.7 MG/DL (8.5-10.1); CARBON DIOXIDE 22 MMOL/L (21-32); CHLORIDE 106 MMOL/L (98-107); CREATININE SERUM 0.85 MG/DL (0.60-1.30); GFR ESTIMATED > 60; GLUCOSE 94 MG/DL (70-105); POTASSIUM 4.4 MMOL/L (3.6-5.0); SODIUM 140 MMOL/L (135-145); TOTAL PROTEIN 7.9 GM/DL (6.4-8.2)
== END ==
LOC: EDSTATUS 12-05 13:13 → ONC 15:00
PROVIDERS: ATTEND Internal Medicine Hematology & Oncology
DX: C50.412 Malignant neoplasm of upper-outer quadrant of left female breast (principal); E66.01 Morbid (severe) obesity due to excess calories; I10 Essential (primary) hypertension; E11.9 Type 2 diabetes mellitus without complications; M19.90 Unspecified osteoarthritis, unspecified site; Z98.890 Other specified postprocedural states
CPT/HCPCS: 80053; 85025; G0463; 99213

== ENCOUNTER → 2020-09-11 | Outpatient (CLI) | payer MEDICARE ==
--- NOTE | 2020-09-11 13:59 | Diagnostic Imaging Report ---
INDICATION: Routine screening. Comparison is made with prior mammogram 08/23/2019 and 08/15/2018. 2-D and 3-D bilateral screening mammography was performed with CAD. Scattered fibroglandular densities are identified bilaterally. A post-lobectomy changes left breast again noted. Scattered benign calcifications in both breasts are again noted. No spiculated mass or malignant appearing microcalcifications are seen. Axillae are unremarkable. IMPRESSION: BI-RADS Category 2 No mammographic features suspicious for malignancy are identified. ACR BI-RADS Category 2: Benign findings. Result letter will be mailed to the patient. Note: At least 10% of breast cancer is not imaged by mammography. Dictated by: Dictated on workstation # [id number]
== END ==
LOC: RAD 11:12
PROVIDERS: ATTEND Internal Medicine Hematology & Oncology
DX: Z12.31 Encounter for screening mammogram for malignant neoplasm of breast (principal); Z85.3 Personal history of malignant neoplasm of breast
CPT/HCPCS: 77063; 77067

== ENCOUNTER → 2020-09-26 | Outpatient (CLI) | payer MEDICARE | LOC: ONC 15:04 | PROVIDERS: ATTEND Internal Medicine Hematology & Oncology | DX: Z12.31 Encounter for screening mammogram for malignant neoplasm of breast (principal); I10 Essential (primary) hypertension; E11.9 Type 2 diabetes mellitus without complications; F32.9 Major depressive disorder, single episode, unspecified; Z85.3 Personal history of malignant neoplasm of breast | CPT/HCPCS: 99213 ==

== ENCOUNTER → 2020-11-19 | Outpatient (CLI) | payer MEDICARE ==
--- NOTE | 2020-11-19 16:55 | Diagnostic Imaging Report ---
INDICATION: Asymptomatic postmenopausal female. COMPARISON: None. FINDINGS: AP Spine L1-L4: [BMD (g/cm2): 1.407] [T-Score: 1.7] [Z-Score: 2.1] [BMD Previous: NA] [BMD % Change: NA] LT Hip Neck: [BMD (g/cm2): 0.935] [T-Score: -0.7] [Z-Score: -01] LT Hip Total: [BMD (g/cm2):0.917] [T-Score:-0.7] [Z-Score: -0.4] [BMD Previous: NA] [BMD % Change: NA] RT Hip Neck: [BMD (g/cm2):10.33] [T-Score:-0.2] [Z-Score:0.4] RT Hip Total: [BMD (g/cm2):0.967] [T-score:-0.3] [Z-Score:0.0] [BMD Previous:NA] [BMD % Change:NA] *Indicates significant change from prior examination based on 95% confidence level. World Health Organization criteria for BMD interpretation classify patients as Normal (T-score at or above -1.0), Osteopenic (T-score between -1.0 and -2.5) or Osteoporotic (T-score at or below -2.5). LIMITATIONS AND MODIFICATION: None. FRACTURE RISK (FRAX SCORE): The ten year probability of (%): Major Osteoporotic Fracture: [6.0] Hip Fracture: [0.3] IMPRESSION: 1. Normal bone mineral density. 2. Baseline examination. 3. See below National Osteoporosis Foundation guidelines on when to potentially initiate pharmacologic therapy. Based on the National Osteoporosis Foundation Guidelines, pharmacologic treatment should be initiated in any of the following, unless clinical conditions suggest otherwise: * Any patient with prior fragility fracture of the hip or vertebrae. A spine fracture indicates 5X risk for subsequent spine fracture and 2X risk for subsequent hip fracture. * Osteoporosis (T-score <-2.5). * Postmenopausal women and men age 50 and older with low bone mass/osteopenia (T-score between -1.0 and -2.5) by DXA and 10-year major osteoporotic fracture greater than 20% or a 10-year probability of hip fracture greater than 3%. These fracture risks are supplied above in the FRAX score, if applicable. * Clinician judgement and/or patient preferences may indicate treatment for people with 10-year fracture probabilities above or below these levels. Dictated by: Dictated on workstation # [id number]
== END ==
LOC: RAD 13:37
PROVIDERS: ATTEND Nurse Practitioner Family
DX: Z00.00 Encounter for general adult medical examination without abnormal findings (principal); Z13.820 Encounter for screening for osteoporosis; Z78.0 Asymptomatic menopausal state
CPT/HCPCS: 77080

== ENCOUNTER → 2021-09-15 | Outpatient (CLI) | payer MEDICARE ==
--- NOTE | 2021-09-15 11:40 | Diagnostic Imaging Report ---
INDICATION: Routine screening. COMPARISON: 09/11/2020 and 08/23/2019. TECHNIQUE: 2D and 3D bilateral screening mammography was performed with CAD. FINDINGS: Both breasts are heterogeneously dense, limiting the sensitivity of mammography. Post therapeutic changes in the left breast are noted. The overall parenchymal pattern appears to be stable. There are benign calcifications bilaterally. No mass or malignant-appearing microcalcifications are detected. The axillae are unremarkable. IMPRESSION: No mammographic features suspicious for malignancy are identified. ACR BI-RADS Category 2: Benign findings. Result letter will be mailed to the patient. Note: At least 10% of breast cancer is not imaged by mammography. ACR BI-RADS Category 1: Negative. Result letter will be mailed to the patient. Note: At least 10% of breast cancer is not imaged by mammography. Dictated by: Dictated on workstation # [id number]
== END ==
LOC: RAD 10:01
PROVIDERS: ATTEND Internal Medicine Hematology & Oncology
DX: Z12.31 Encounter for screening mammogram for malignant neoplasm of breast (principal); Z85.3 Personal history of malignant neoplasm of breast
CPT/HCPCS: 77063; 77067

== ENCOUNTER → 2021-09-25 | Outpatient (CLI) | payer MEDICARE | LOC: ONC 12:34 | PROVIDERS: ATTEND Internal Medicine Hematology & Oncology | DX: C50.912 Malignant neoplasm of unspecified site of left female breast (principal); E11.9 Type 2 diabetes mellitus without complications; I10 Essential (primary) hypertension; E66.01 Morbid (severe) obesity due to excess calories; Z90.49 Acquired absence of other specified parts of digestive tract; Z92.3 Personal history of irradiation | CPT/HCPCS: 99213 ==

== ENCOUNTER → 2022-05-20 | Outpatient (CLI) | payer MEDICARE ==
--- NOTE | 2022-05-20 20:58 | Diagnostic Imaging Report ---
INDICATION: Right breast pain. COMPARISON: Correlation is made with diagnostic mammogram earlier the same day. FINDINGS: Interrogation of the area of pain in the upper right breast was performed. This corresponds to the 1:00 location, 3-4 cm from the nipple. No sonographic abnormality is seen. No solid or cystic mass is detected. IMPRESSION: No sonographic abnormality is detected. ACR BI-RADS Category 1: Negative. Result letter will be mailed to the patient. Note: At least 10% of breast cancer is not imaged by mammography. Dictated by: Dictated on workstation # [id number]
--- NOTE | 2022-05-20 21:52 | Diagnostic Imaging Report ---
INDICATION: Right breast pain. COMPARISON: Prior mammograms from 09/15/2021 and 09/11/2020. EXAMINATION: 2D and 3D bilateral diagnostic mammography was performed with CAD. The current study was also evaluated with a Computer Aided Detection (CAD) system. FINDINGS: Both breasts are heterogeneously dense, limiting the sensitivity of mammography. There are dystrophic calcifications in the left breast likely from prior lumpectomy. No dominant mass or malignant-appearing microcalcifications are seen. Axillae are unremarkable. IMPRESSION: No mammographic features suspicious for malignancy are identified. Even so, sonographic interrogation of the area of pain in the right breast is recommended and will be performed today. ACR BI-RADS Category 0: Incomplete. (Needs additional imaging evaluation). Result letter will be mailed to the patient. Note: At least 10% of breast cancer is not imaged by mammography. Dictated by: Dictated on workstation # [id number]
== END ==
LOC: RAD 12:44
PROVIDERS: ATTEND Nurse Practitioner Family
DX: N63.22 Unspecified lump in the left breast, upper inner quadrant (principal); Z85.3 Personal history of malignant neoplasm of breast
CPT/HCPCS: 76642; 77066; G0279; 77062

== ENCOUNTER → 2022-10-16 | Outpatient (CLI) | payer MEDICARE | LOC: ONC 10:56 | PROVIDERS: ATTEND Internal Medicine Hematology & Oncology | DX: C50.912 Malignant neoplasm of unspecified site of left female breast (principal); I10 Essential (primary) hypertension; E11.9 Type 2 diabetes mellitus without complications; E66.01 Morbid (severe) obesity due to excess calories ==